=== PATIENT | female | born 1940 | race Caucasian/White ===

== ENCOUNTER 2017-03-25 11:11 | Emergency (ER) | payer OTHER ==
[2017-03-25 11:19] VITALS: BP 131/56; PULSE 63; TEMP 97.8; BMI 38.9
--- NOTE | 2017-03-25 11:44 | PDOC ---
History of Present Illness - General Chief Complaint: Pain Stated Complaint: RT HIP PAIN Time Seen by Provider: 03/25/17 11:25 History Source: Patient Exam Limitations: No Limitations - History of Present Illness Initial Comments: 03/25/17 11:56 76-year-old female presents to the ED with complaints of right hip pain for the past 6 months now radiating to the left hip and left shoulder. Patient states symptoms progressively worse throughout the day but are relieved with Tylenol. Patient states it seems Dr. Parker twice for the above and was supposed received a prescription for CAT scan/MRI but states is still waiting and due to the length of symptoms she decided come to the ER. Patient denies numbness, tingling, weakness, skin discoloration, swelling, abdominal pain, chest pain, headache or dizziness. Patient does state mild weight gain over the past year and denies any history of arthritis, gout, or muscle pain. Timing/Duration: constant Severity: moderate Associated Symptoms: reports: denies symptoms Past History - Travel Traveled outside of the country in the last 30 days: No Close contact w/someone who was outside of country & ill: No - Past Medical History Allergies/Adverse Reactions: Allergies Allergy/AdvReac Type Severity Reaction Status Date / Time No Known Allergies Allergy Verified 03/25/17 11:15 Home Medications: Ambulatory Orders Lisinopril [Prinivil] 10 mg PO DAILY 08/08/12 Meloxicam [Mobic] 15 mg PO DAILY 08/08/12 Simvastatin [Zocor] 40 mg PO HS 08/08/12 Aspirin [Aspirin EC] 81 mg PO ASDIR 07/09/16 Cyclobenzaprine HCl 7.5 mg PO HS #2 tablet 07/09/16 Naproxen [Naprosyn -] 250 mg PO BID #4 tablet 07/09/16 HTN: Yes Hypercholesterolemia: Yes Kidney Stones: Yes - Surgical History Cholecystectomy: Yes - Psycho/Social/Smoking Cessation Hx Anxiety: No Suicidal Ideation: No Smoking Status: No Smoking History: Never smoked Number of Cigarettes Smoked Daily: 0 Information on smoking cessation initiated: No Hx Alcohol Use: No Drug/Substance Use Hx: No Substance Use Type: None Patient Lives Alone: No Lives with/in: spouse/SO Review of Systems - Review of Systems Able to Perform ROS?: No Constitutional: No: Symptoms Reported Musculoskeletal: Yes: Back Pain, Joint Pain Integumentary: No: Symptoms Reported Neurological: No: Symptoms reported Hematologic/Lymphatic: No: Symptoms Reported *Physical Exam - Vital Signs Last Vital Signs Temp Pulse Resp BP Pulse Ox 97.8 F 63 18 131/56 98 03/25/17 11:13 03/25/17 11:13 03/25/17 11:13 03/25/17 11:13 03/25/17 11:13 - Physical Exam General Appearance: Yes: Nourished, Appropriately Dressed. No: Apparent Distress Neck: positive: Tender. negative: Supple, Decreased range of motion Respiratory/Chest: positive: Lungs Clear, Normal Breath Sounds. negative: Chest Tender, Respiratory Distress, Accessory Muscle Use Cardiovascular: positive: Regular Rhythm, Regular Rate. negative: Murmur Musculoskeletal: positive: Vertebral Tenderness (l4-5). negative: Decreased Range of Motion Extremity: positive: Normal Capillary Refill, Normal Inspection, Normal Range of Motion. negative: Tender Integumentary: positive: Normal Color, Warm, Moist Medical Decision Making - Medical Decision Making 03/25/17 12:03 Patient with worsening chronic low back pain now radiating to her hips and left shoulder. Patient on exam had point and is to L4-L5 with no joint laxity, deformity, or crepitus. Patient ordered for 30 IM Toradol, including a CT of the lumbar spine. Depending on results will contact patient's PCP Dr. Parker. 03/25/17 12:39 Lumbar spine shows marked bilateral L5-S1 with mild to moderate bilateral L4-L5 and mild to moderate right L3 to L4 degenerative facet athropathy. no definite disc herniation noted. Multilevel disc bulging. There is also noted mild L4-L5 canal stenosis. Multilevel degenerative disc space narrowing. Patient will be given copy of CAT scan to bring with her to Dr. Parker's office. Patient otherwise recommended to take Motrin 400 mg every 8 hours for discomfort. 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 Apply heat to affected area. Bring copy of Scan report with you to Dr. Parker's office.
[2017-03-25] MEDS ORDERED: KETOROLAC TROMETHAMINE 30 MG/1 ML VIAL IM ONE (12:01)
[2017-03-25] MEDS ORDERED: KETOROLAC TROMETHAMINE 30 MG/1 ML VIAL ONE (12:11)
== END 2017-03-25 12:45 | disposition home or self-care (01) ==
LOC: JER 11:11 → JERFT 11:11
PROC: 3E0233Z Introduction of Anti-inflammatory into Muscle, Percutaneous Approach (ICD-10-PCS; principal; 2017-03-25)
DX: M13.88 Other specified arthritis, other site (principal); I10 Essential (primary) hypertension; E78.00 Pure hypercholesterolemia, unspecified; Z87.442 Personal history of urinary calculi
CPT/HCPCS: 72131-TC; 99281-25

== ENCOUNTER 2018-05-24 08:56 | Emergency (ER) | payer OTHER ==
[2018-05-24 09:01] VITALS: TEMP 98.6; BMI 39.4
--- NOTE | 2018-05-24 09:15 | PDOC ---
History of Present Illness - General Chief Complaint: Chest Pain Stated Complaint: CHEST PAIN Time Seen by Provider: 05/24/18 09:14 History Source: Patient, Spouse, Old Records Exam Limitations: No Limitations - History of Present Illness Initial Comments: 65 y/o female presenting to [facility] ER via private auto complaining of left sided chest pain x6 days. Pain is nonradiating to back, neck, or arm. Pain is not reproducible with palpation, not pleuritic, and not exertional. Made worse by eating and drinking, but denies burning sensation in throat or mouth. Denies acute dyspnea, lower extremity swelling, orthopnea, or paroxysmal nocturnal dyspnea. Denies trauma to the area. Medical Hx: - HTN - HCL - Arthritis Surgical Hx: - Cholecystectomy Past History - Past Medical History Allergies/Adverse Reactions: Allergies Allergy/AdvReac Type Severity Reaction Status Date / Time No Known Allergies Allergy Verified 04/07/18 10:18 Home Medications: Ambulatory Orders Lisinopril [Prinivil] 20 mg PO DAILY 08/08/12 Simvastatin [Zocor] 40 mg PO HS 08/08/12 Aspirin [Aspirin EC] 81 mg PO ASDIR 07/09/16 Omeprazole 20 mg PO DAILY 28 Days #28 tablet. 05/24/18 COPD: No HTN: Yes Hypercholesterolemia: Yes Kidney Stones: Yes - Surgical History Cholecystectomy: Yes - Immunization History Immunization Up to Date: Yes - Suicide/Smoking/Psychosocial Hx Smoking Status: No Smoking History: Never smoked Have you smoked in the past 12 months: No Number of Cigarettes Smoked Daily: 0 Hx Alcohol Use: No Drug/Substance Use Hx: No Substance Use Type: None Review of Systems - Review of Systems Able to Perform ROS?: Yes Comments:: In addition to that documented in the HPI above, the additional ROS was obtained : Constitutional: Denies fevers, chills, or syncope Eyes: Denies vision changes ENMT: Denies sore throat CV: Per HPI Resp: Denies acute SOB GI: Denies vomiting or diarrhea *Physical Exam - Vital Signs Last Vital Signs Temp Pulse Resp BP Pulse Ox 98.6 F 55 L 16 134/79 99 05/24/18 08:59 05/24/18 14:59 05/24/18 14:59 05/24/18 14:59 05/24/18 14:59 - Physical Exam Comments: Constitutional: Well-developed, well-nourished female in no acute distress or obvious discomfort. Found sitting upright on edge of hospital bed. Alert and oriented x4. Answered all questions appropriately and completely. Speech was non -labored, non-pressured. HEENT: Normocephalic. No obvious external signs of trauma. Hearing grossly normal. No nasal discharge. Neck is supple, trachea is midline. Cardiovascular: Regular rate and regular rhythm. No murmur, rubs, clicks, or gallops. Peripheral pulses: Radial pulses full. Respiratory: Breathing unlabored. Equal chest rise and fall. Clear to auscultation bilaterally. No stridor, no wheezing, no rhonchi. Gastrointestinal: abdomen is soft, non-tender, non-distended. No overlying skin lesions. Neuro: Alert and oriented. Moving all four extremities spontaneously. MSK / Skin: Warm, dry, and intact. No bruising, rashes, or other lesions. Trace pretibial edema on R and L. : No R or L CVA tenderness. Psych: Affect: appropriate. Mood: normal. ED Treatment Course - LABORATORY CBC & Chemistry Diagram: 05/24/18 09:40 05/24/18 13:30 - ADDITIONAL ORDERS Additional order review: Laboratory Results 05/24/18 05/24/18 05/24/18 14:15 13:30 12:50 Sodium 143 Potassium 4.1 Chloride 110 H Carbon Dioxide 27 Anion Gap 6 L BUN 13 Creatinine 0.6 Creat Clearance w eGFR > 60 Random Glucose 99 Serum Osmolality 291 Calcium 8.5 Phosphorus 2.8 Magnesium 2.2 Troponin I < 0.02 Lipase Urine Color Urine Appearance Urine pH Ur Specific [place] Urine Protein Urine Glucose (UA) Urine Ketones Urine Blood Urine Nitrite Urine Bilirubin Urine Urobilinogen Ur Leukocyte Esterase Urine WBC (Auto) Urine RBC (Auto) Ur Epithelial Cells Urine Mucus Urine Osmolality 409 Ur Random Sodium Urine Creatinine 05/24/18 05/24/18 05/24/18 11:50 11:50 11:50 Sodium Potassium Chloride Carbon Dioxide Anion Gap BUN Creatinine Creat Clearance w eGFR Random Glucose Serum Osmolality Cancelled Calcium Phosphorus Magnesium Troponin I Lipase Urine Color Ltyellow Urine Appearance Clear Urine pH 5.0 Ur Specific [place] 1.010 Urine Protein 7 Negative Urine Glucose (UA) Negative Urine Ketones Negative Urine Blood 1+ H Urine Nitrite Negative Urine Bilirubin Negative Urine Urobilinogen Negative Ur Leukocyte Esterase Trace Urine WBC (Auto) 6 Urine RBC (Auto) 1 Ur Epithelial Cells Rare Urine Mucus Rare Urine Osmolality Ur Random Sodium 88 Urine Creatinine 52.0 H 05/24/18 05/24/18 09:40 09:40 Sodium 119 L* Potassium 3.8 Chloride 115 H Carbon Dioxide 26 Anion Gap -22 L BUN 15 Creatinine 0.6 Creat Clearance w eGFR > 60 Random Glucose 97 Serum Osmolality Calcium 9.9 Phosphorus Magnesium Troponin I Cancelled < 0.02 Lipase Cancelled 160 Urine Color Urine Appearance Urine pH Ur Specific [place] Urine Protein Urine Glucose (UA) Urine Ketones Urine Blood Urine Nitrite Urine Bilirubin Urine Urobilinogen Ur Leukocyte Esterase Urine WBC (Auto) Urine RBC (Auto) Ur Epithelial Cells Urine Mucus Urine Osmolality Ur Random Sodium Urine Creatinine 05/24/18 09:40 RBC 5.59 H MCV 63.7 L MCHC 30.8 L RDW 16.5 H MPV 8.6 - RADIOLOGY Radiology Studies Ordered: Category Date Time Status CHEST PA & LAT [RAD] Stat Radiology 05/24/18 09:33 Taken - Medications Given in the ED: ED Medications Discontinued Medications Generic Name Dose Route Start Last Admin Trade Name Freq PRN Reason Stop Dose Admin Al Hydroxide/Mg Hydroxide 30 ml 05/24/18 09:34 05/24/18 09:41 Mylanta Oral Suspension - PO 05/24/18 09:35 30 ml ONCE ONE Administration Lidocaine HCl 15 ml 05/24/18 09:34 05/24/18 09:41 Xylocaine 2% Viscous MM 05/24/18 09:35 15 ml ONCE ONE Administration Sodium Chloride 1,000 ml 05/24/18 11:36 05/24/18 12:00 Normal Saline - IV 05/24/18 11:37 1,000 ml ONCE ONE Administration Medical Decision Making - Medical Decision Making *Reviewed vital signs, nursing notes, and prior visit documentation (if available). 65 y/o female complaining of left sided chest pain x1 week. Nonradiating, non reproducible, nonpleuritic. Worse with PO intake. Afebrile. Vitals unremarkable for hypotension or tachycardia. Suspect dyspepsia vs PUD given relation to food. Pt is s/p cholecystectomy. Low suspicion for ACS, esophageal spasm, pancreatitis, gastritis, costochondritis, pneumonia, pleurisy, pericarditis/ myocarditis, dehydration, electrolyte/metabolic derangements. Will obtain CBC, BMP, Troponin, EKG, and CXR. Ordered viscous lidocaine and Maalox for symptom relief. Takes ASA daily, last used last night. Will hold at this time. HEART Score for Major Cardiac Events from [email or web address] on 05/24/2018 RESULT SUMMARY: 4 points Moderate Score (4-6 points) Risk of MACE of 12-16.6%. INPUTS: History > 0 = Slightly suspicious EKG > 0 = Normal Age > 2 = ?65 Risk factors > 2 = ?3 risk factors or history of atherosclerotic disease Initial troponin > 0 = ?normal limit EKG: Sinus bradycardia rhythm with a ventricular rate of 58 bpm. Normal axis. Normal intervals. No ST segment elevation or depression. No hyperacute T waves. No pathologic Q waves. Nonspecific T wave inversion in V2. Pt reports chest discomfort has improved after GI cocktail. 11:42 Noted to be hyponatremic to 119. No history of similar values noted in [employer]. Ordered NS IVFB. Will obtain serum osmolality and urine electrolytes to calculate correcting fluid rate. 13:17 Serum osmolality cancelled by lab. Reordered. Also ordered second troponin. Continue to have low suspicion for ACS. Microblog sent to [facility] Hospitalist team for admission. Second chemistry revealed sodium within normal range. Suspect initial sodium was a lab abnormality as pt is asymptomatic. Inpatient medicine team agrees. Will cancel admission as pt's chest pain has resolved. Second troponin negative. Continue to have low suspicion for ACS. Discussed imaging and laboratory results with pt. Answered all questions. Provided return precautions. Pt expressed verbal understanding and agreement with plan to discharge home with outpatient follow up. Is already scheduled to see sail maker next week, who incidentally was in the department evaluating another department and agrees without outpatient follow up. Also provided GI referral. *DC/Admit/Observation/Transfer Diagnosis at time of Disposition: Hyponatremia Chest pain Qualifiers: Chest pain type: unspecified Qualified Code(s): R07.9 - Chest pain, unspecified - Discharge Dispostion Condition at time of disposition: Stable Decision to Admit order: Yes - Prescriptions Prescriptions: Omeprazole 20 mg PO DAILY 28 Days #28 tablet.dr - Referrals Referrals: Alonso Parker MD [Primary Care Provider] - Remy Mendoza MD [Staff Physician] - - Patient Instructions Printed Discharge Instructions: DI for Gastroesophageal Reflux Disease (GERD), DI for Atypical Chest Pain Additional Instructions: Your lab work initially showed your sodium was low, however it was normal on the repeat test. This first result was likely a lab error. The rest of your results were normal. Your symptoms were likely related to acid reflux. I have sent a 4 week prescription for Omeprazole to [facility]. Take as directed on the package. You should follow up with your primary care doctor within the next 3-4 days. You will need to call to make an appointment. The results from today's visit are included in this packet. Take it with you so your physician can review the results. I have also included a referral for your to see Dr. Mendoza, who is a gastrointestinal (GI) doctor. You can also follow up with him or with another physician recommended by your primary care doctor. You will need to call to make an appointment. Go to the nearest emergency department if your symptoms worsen or you feel like you need an additional emergency evaluation. Baker trabajo de laboratorio inicialmente mostr que baker nivel de sodio era bajo, sin embargo, fue normal en la prueba de repeticin. Antoinette primer resultado fue probablemente un error de laboratorio. El nicholas de tus resultados fueron normales. Matt sntomas probablemente estaban relacionados con el reflujo cido. He enviado sharan receta de 4 semanas para omeprazol a [facility]. Dona shari se indica en el paquete. Debe hacer un seguimiento con baker mdico de atencin primaria dentro de los prximos 3 a 4 cordova. Tendr que llamar para hacer sharan stephanie. Los resultados de la visita de armandoallegra estn incluidos en antoinette paquete. Llvelo con usted para que baker mdico pueda revisar los resultados. Husam inclu sharan referencia para que usted hawa al Dr. Mendoza, que es un mdico gastrointestinal (GI). Huasm puede hacer un seguimiento con l o con otro mdico recomendado por baker mdico de atencin primaria. Tendr que llamar para hacer sharan stephanie. Vaya al servicio de urgencias ms cercano si matt sntomas empeoran o si siente que necesita sharan evaluacin de emergencia adicional. Print Language: URUGUAYAN - Post Discharge Activity
[2018-05-24] MEDS ORDERED: MAG HYDROX/AL HYDROX/SIMETH 30 ML UNIT-DOSE CUP PO ONE (09:34)
[2018-05-24] MEDS ORDERED: LIDOCAINE VISCOUS 2% ORAL/TOP 100 ML BOTTLE MM ONE (09:34)
[2018-05-24] MEDS ORDERED: MAG HYDROX/AL HYDROX/SIMETH 30 ML UNIT-DOSE CUP ONE (09:38)
[2018-05-24] MEDS ORDERED: LIDOCAINE VISCOUS 2% ORAL/TOP 20 ML UNIT-DOSE CUP ONE (09:38)
[2018-05-24 10:23] LABS: HEMATOCRIT 35.6 % (32.4-45.2); MCHC 30.8 g/dl (32.0-36.0); MEAN CELL VOLUME 63.7 fl (80-96); MEAN PLT VOLUME 8.6 fl (7.5-11.1); PLATELET COUNT 246 K/MM3 (134-434); RBC 5.59 M/mm3 (3.60-5.2); RDW 16.5 % (11.6-15.6); WHITE BLOOD COUNT 7.4 K/mm3 (4.0-10.0)
[2018-05-24 10:26] LABS: MCH 19.6 pg (25.7-33.7)
[2018-05-24 11:03] LABS: ANION GAP -22 MMOL/L (8-16); BLOOD UREA NITROGEN 15 mg/dL (7-18); CALCIUM 9.9 mg/dL (8.5-10.1); CHLORIDE 115 mmol/L (98-107); CO2 26 mmol/L (21-32); CREATININE 0.6 mg/dL (0.55-1.3); GLUCOSE,RANDOM 97 mg/dL (74-106); LIPASE 160 U/L (73-393); POTASSIUM 3.8 mmol/L (3.5-5.1)
--- NOTE | 2018-05-24 11:12 | PDOC ---
Attending Attestation - Resident Resident Name: Gustavo Villafuerte - ED Attending Attestation I have performed the following: I have examined & evaluated the patient, The case was reviewed & discussed with the resident, I agree w/resident's findings & plan, Exceptions are as noted - HPI HPI: 05/24/18 11:10 Agree with residents HPI - Physicial Exam PE: 05/24/18 11:11 Agree with Residents PE - Medical Decision Making 05/24/18 13:30 77 years old multiple medical problems presents to the emergency department one- week history of atypical epigastric discomfort associated with meals Nonischemic EKG troponin negative heart score 3. Patient stable for outpatient follow-up however on laboratory analysis patient's sodium noted to be 119 Repeat sodium noted to be greater than 140 no acute indication at this time for observation Patient has follow-up with her pocket cutter on Wednesday. Findings, the need for follow-up and strict return instructions discussed with patient and family. Heart Score/ECG Review - History History: Slightly suspicious - Electrocardiogram EKG: Normal - Age Age: >/= 65 - Risk Factors Risk Factors Heart Score: Yes Hx Hypercholesterolemia, Yes Hx Hypertension Based on the list above the patient has:: 1-2 risk factors - Troponin Troponin: </= normal limit - Score Heart Score - Total: 3 - ECG Impressions Comment:: 05/24/18 13:[address] elevations or T-wave inversions
[2018-05-24 11:27] LABS: SODIUM 119 mmol/L (136-145)
[2018-05-24] MEDS ORDERED: SODIUM CHLORIDE 0.9% 500 ML INFUS.BAG IV ONE (11:36)
[2018-05-24 12:05] LABS: URINE APPEARANCE CLEAR; URINE BILIRUBIN NEGATIVE (<2.0 mg/dL); URINE COLOR LTYELLOW; URINE GLUCOSE (UA) NEGATIVE (NEGATIVE); URINE KETONE NEGATIVE (NEGATIVE); URINE LEUK ESTERASE TRACE (NEGATIVE); URINE NITRITE NEGATIVE (NEGATIVE); URINE PROTEIN NEGATIVE (NEGATIVE); URINE UROBILINOGEN NEGATIVE mg/dL (0.2-1.0)
[2018-05-24 12:10] LABS: EPI CELLS RARE /HPF (FEW); URINE MUCUS RARE
--- NOTE | 2018-05-24 13:29 | PN ---
Teaching Attending Note Name of Resident: Jarret Camp ATTENDING PHYSICIAN STATEMENT I saw and evaluated the patient. I reviewed the resident's note and discussed the case with the resident. I agree with the resident's findings and plan as documented. SUBJECTIVE: Patient is a 65 y/o female with PMHx of HTN, HLD, presented with complaining of having left sided chest pain x 6 days. OBJECTIVE: Vital Signs Temperature 98.6 F 05/24/18 08:59 Pulse Rate 50 L 05/24/18 12:15 Respiratory Rate 18 05/24/18 12:15 Blood Pressure 135/55 L 05/24/18 12:15 O2 Sat by Pulse Oximetry (%) 98 05/24/18 12:15 GENERAL:Well developed, well nourished. Awake and alert. No acute distress. HEENT:Normocephalic, atraumatic. PERRLA, EOMI. No conjunctival pallor. Sclera are non-icteric. Moist mucous membranes. NECK: Supple. Full ROM. No JVD. Carotid pulses 2+ and symmetric, without bruits. No thyromegaly. CARDIOVASCULAR:Regular rate and rhythm. No murmurs, rubs, or gallops. PULMONARY: CTA BL . No wheezing, rales or rhonchi. ABDOMINAL:Soft. Non-tender. Non-distended. No rebound or guarding. No organomegaly. Normoactive bowel sounds. MUSCULOSKELETAL Normal range of motion at all joints. No bony deformities or tenderness. EXTREMITIES: No cyanosis. No clubbing. No edema. No calf tenderness. SKIN: Warm and dry. Normal capillary refill. No rashes. No jaundice. NEUROLOGICAL: Alert, awake, appropriate. Cranial nerves 2-12 intact. PSYCHIATRIC: Cooperative. Good eye contact. Appropriate mood and affect. CBCD WBC 7.4 K/mm3 (4.0-10.0) 05/24/18 09:40 RBC 5.59 M/mm3 (3.60-5.2) H 05/24/18 09:40 Hgb 11.0 GM/dL (10.7-15.3) 05/24/18 09:40 Hct 35.6 % (32.4-45.2) 05/24/18 09:40 MCV 63.7 fl (80-96) L 05/24/18 09:40 MCHC 30.8 g/dl (32.0-36.0) L 05/24/18 09:40 RDW 16.5 % (11.6-15.6) H 05/24/18 09:40 Plt Count 246 K/MM3 (134-434) 05/24/18 09:40 MPV 8.6 fl (7.5-11.1) 05/24/18 09:40 CMP Sodium 119 mmol/L (136-145) L* 05/24/18 09:40 Potassium 3.8 mmol/L (3.5-5.1) 05/24/18 09:40 Chloride 115 mmol/L (98-107) H 05/24/18 09:40 Carbon Dioxide 26 mmol/L (21-32) 05/24/18 09:40 Anion Gap -22 MMOL/L (8-16) L 05/24/18 09:40 BUN 15 mg/dL (7-18) 05/24/18 09:40 Creatinine 0.6 mg/dL (0.55-1.3) 05/24/18 09:40 Creat Clearance w eGFR > 60 (>60) 05/24/18 09:40 Random Glucose 97 mg/dL (74-106) 05/24/18 09:40 Calcium 9.9 mg/dL (8.5-10.1) 05/24/18 09:40 CARDIAC ENZYMES Troponin I < 0.02 ng/ml (0.00-0.05) 05/24/18 09:40 Home Medications Medication Instructions Recorded Lisinopril [Prinivil] 20 mg PO DAILY 08/08/12 Simvastatin [Zocor] 40 mg PO HS 08/08/12 Aspirin [Aspirin EC] 81 mg PO ASDIR 07/09/16 CXR: nO effusion or infiltrate. EKG: ASSESSMENT AND PLAN: Patient is a 65 y/o female with PMHx of HTN, HLD, presented with complaining of having left sided chest pain x 6 days. # Severe Hyponatremia : given a liter of IV fluid, urine osm, serum osm. sodium in urine, Nephro consult
[2018-05-24 14:33] LABS: ANION GAP 6 MMOL/L (8-16); BLOOD UREA NITROGEN 13 mg/dL (7-18); CALCIUM 8.5 mg/dL (8.5-10.1); CHLORIDE 110 mmol/L (98-107); CO2 27 mmol/L (21-32); CREATININE 0.6 mg/dL (0.55-1.3); GLUCOSE,RANDOM 99 mg/dL (74-106); MAGNESIUM 2.2 mg/dL (1.8-2.4); PHOSPHOROUS 2.8 mg/dL (2.5-4.9); POTASSIUM 4.1 mmol/L (3.5-5.1); SODIUM 143 mmol/L (136-145)
[2018-05-24 14:59] VITALS: BP 134/79; PULSE 55
--- NOTE | 2018-05-24 15:13 | CON.CARD ---
Consult Consult Specialty:: cardiology Reason for Consultation:: chest pain - History of Present Illness Chief Complaint: Pt A&Ox3; intermittent chest/abdominal discomfort for the past several days History of Present Illness: 65 y/o female (b. [place]) with PMHx HTN, hyperlipidemia, CAD (stress MIBI 06/2014: mild, nonextensive apical ischemia, with normal LVEF; coronary [id number]: results unknown: ? [facility], though pt says "everything was fine " and no PCI was required), palpitations, obesity, sedentary lifestyle, complaining of left sided chest pain x6 days. Pain is nonradiating to back, neck , or arm. Pain is not reproducible with palpation, not pleuritic, and not exertional. Made worse by eating and drinking, but denies burning sensation in throat or mouth. Denies acute dyspnea, lower extremity swelling, orthopnea, or paroxysmal nocturnal dyspnea. Denies trauma to the area. Surgical Hx: - Cholecystectomy - History Source History Provided By: Patient, Family Member (), Medical Record Limitations to Obtaining History: No Limitations - Past Medical History Cardio/Vascular: Yes: CAD, CHF, HTN, Hyperlipdemia, Murmur Pulmonary: No: Previously Intubated Reproductive: Yes: Postmenopausal ...: No Psych: Yes: Anxiety - Past Surgical History Additional Surgical History: coronary angiogram 2014 - Alcohol/Substance Use Hx Alcohol Use: No - Smoking History Smoking history: Never smoked Have you smoked in the past 12 months: No Aproximately how many cigarettes per day: 0 Home Medications - Allergies Allergies/Adverse Reactions: Allergies Allergy/AdvReac Type Severity Reaction Status Date / Time No Known Allergies Allergy Verified 04/07/18 10:18 - Home Medications Home Medications: Ambulatory Orders Lisinopril [Prinivil] 20 mg PO DAILY 08/08/12 Simvastatin [Zocor] 40 mg PO HS 08/08/12 Aspirin [Aspirin EC] 81 mg PO ASDIR 07/09/16 Omeprazole 20 mg PO DAILY 28 Days #28 tablet. 05/24/18 Family Disease History - Family Disease History Family History: Denies Review of Systems - Review of Systems Constitutional: reports: Weakness Eyes: reports: No Symptoms HENT: reports: No Symptoms Neck: reports: No Symptoms Cardiovascular: reports: Chest Pain Respiratory: reports: No Symptoms Gastrointestinal: reports: Abdominal Pain Genitourinary: reports: No Symptoms Breasts: reports: No Symptoms Reported Musculoskeletal: reports: Muscle Weakness Integumentary: reports: No Symptoms Neurological: reports: No Symptoms Endocrine: reports: No Symptoms Hematology/Lymphatic: reports: No Symptoms Psychiatric: reports: Anxiety - Risk Factors Known Risk Factors: Yes: Age, Hypertension, Physical Inactivity Vital Signs: Vital Signs Temperature 98.6 F 05/24/18 08:59 Pulse Rate 55 L 05/24/18 14:59 Respiratory Rate 16 05/24/18 14:59 Blood Pressure 134/79 05/24/18 14:59 O2 Sat by Pulse Oximetry (%) 99 05/24/18 14:59 Constitutional: Yes: Anxious Eyes: Yes: WNL HENT: Yes: WNL Neck: Yes: WNL Respiratory: Yes: WNL Gastrointestinal: Yes: WNL Renal/: Yes: WNL Cardiovascular: Yes: Regular Rate and Rhythm JVD: No Carotid Bruit: No PMI: Non-Displaced Heart Sounds: Yes: S1, S2, S4 Murmur: Yes: Systolic Murmur, Grade 1 Musculoskeletal: Yes: Muscle Weakness Extremities: Yes: WNL Edema: No Peripheral Pulses WNL: Yes Integumentary: Yes: WNL Neurological: Yes: WNL Psychiatric: Yes: Alert, Oriented, Other - Other Data Labs, Other Data: CBC, BMP 05/24/18 09:40 05/24/18 13:30 Troponin, BNP 05/24/18 05/24/18 05/24/18 09:40 09:40 13:30 Troponin I < 0.02 Cancelled < 0.02 Troponin, BNP 05/24/18 05/24/18 05/24/18 09:40 09:40 13:30 Troponin I < 0.02 Cancelled < 0.02 Problem List - Problems (1) Atypical chest pain Assessment/Plan: TNI < 0.02; f/u serially. EKG pending. Code(s): R07.89 - OTHER CHEST PAIN (2) Arthritis of lumbar spine Code(s): M46.96 - UNSPECIFIED INFLAMMATORY SPONDYLOPATHY, LUMBAR REGION (3) Chronic lower back pain Code(s): M54.5 - LOW BACK PAIN; G89.29 - OTHER CHRONIC PAIN Qualifiers: Back pain laterality: right Sciatica presence: with sciatica Sciatica laterality: sciatica of right side Qualified Code(s): M54.41 - Lumbago with sciatica, right side (4) Hyponatremia Assessment/Plan: NA 119; workup in progress. Code(s): E87.1 - HYPO-OSMOLALITY AND HYPONATREMIA
--- NOTE | 2018-05-25 09:53 | PN ---
Progress Note, Physician History of Present Illness: 65 y/o female presenting to [facility] ER via private auto complaining of left sided chest pain x6 days. Pain is nonradiating to back, neck, or arm. Pain is not reproducible with palpation, not pleuritic, and not exertional. Made worse by eating and drinking, but denies burning sensation in throat or mouth. Denies acute dyspnea, lower extremity swelling, orthopnea, or paroxysmal nocturnal dyspnea. Denies trauma to the area. - Objective Vital Signs: Vital Signs Temperature 98.6 F 05/24/18 08:59 Pulse Rate 55 L 05/24/18 14:59 Respiratory Rate 16 05/24/18 14:59 Blood Pressure 134/79 05/24/18 14:59 O2 Sat by Pulse Oximetry (%) 99 05/24/18 14:59 Eyes: Yes: WNL, Conjunctiva Clear, EOM Intact HENT: Yes: WNL, Atraumatic, Normocephalic Neck: Yes: WNL, Supple, Trachea Midline Cardiovascular: Yes: WNL, Regular Rate and Rhythm Respiratory: Yes: WNL, Regular, CTA Bilaterally Gastrointestinal: Yes: WNL, Normal Bowel Sounds Genitourinary: Yes: WNL Musculoskeletal: Yes: WNL Extremities: Yes: WNL Edema: No Integumentary: Yes: WNL Neurological: Yes: WNL, Alert, Oriented ...Motor Strength: WNL Psychiatric: Yes: WNL Labs: CBC, BMP 05/24/18 09:40 05/24/18 13:30
[2018-05-25 15:39] LABS: CHOLESTEROL 130 mg/dL (50-200); HDL CHOLESTEROL 60 mg/dL (40-60); TRIGLYCERIDES 118 mg/dL (0-150)
--- NOTE | 2018-05-26 22:15 | EKG ---
Test Reason : Blood Pressure : / mmHG Vent. Rate : 058 BPM Atrial Rate : 058 BPM P-R Int : 132 ms QRS Dur : 094 ms QT Int : 400 ms P-R-T Axes : 066 037 037 degrees QTc Int : 392 ms SINUS BRADYCARDIA WITH SINUS ARRHYTHMIA NONSPECIFIC T WAVE ABNORMALITY ABNORMAL ECG WHEN COMPARED WITH ECG OF 08-AUG-2012 17:09, QT HAS SHORTENED Confirmed by NIKOLAS GARRISON MD ([id number]) on 05/26/2018 10:14:39 PM Referred By: Confirmed By:NIKOLAS GARRISON MD
== END 2018-05-24 14:59 | disposition home or self-care (01) ==
LOC: JER 08:56
DX: R07.9 Chest pain, unspecified (principal); E87.1 Hypo-osmolality and hyponatremia
CPT/HCPCS: 36415; 71046-TC-FY; 80048; 80061; 81003; 81015; 82570; 83690; 83721; 83735; 83930; 83935; 84100; 84156; 84300; 84443; 84484; 85027; 87086; 93005; 93010; 99285-25

== ENCOUNTER 2019-03-29 23:13 | Emergency (ER) | payer OTHER ==
[2019-03-29 23:17] VITALS: TEMP 100.2; BMI 38.3
--- NOTE | 2019-03-29 23:59 | PDOC ---
Documentation entered by Sofie Salazar SCRIBE, acting as scribe for Queenie Lawson DO. Queenie Lawson DO: This documentation has been prepared by the Martin vera Sammi, SCRIBE, under my direction and personally reviewed by me in its entirety. I confirm that the documentation accurately reflects all work, treatment, procedures, and medical decision making performed by me. History of Present Illness - General Chief Complaint: Shortness of Breath Stated Complaint: COLD SYMPTOMS Time Seen by Provider: 03/29/19 23:44 History Source: Patient Exam Limitations: No Limitations - History of Present Illness Initial Comments: 03/30/19 00:01 The patient is a 78 year old female, with a significant PMH of HTN and high cholesterol, who presents to the emergency department for evaluation of 4 days of worsening chest congestion and non-productive cough. The patient notes associated subjective fever, intermittent sore throat, loose stool, and lateral abdominal discomfort. She reports taking tylenol at 9:30 tonight with no relief. She notes chronic intermittent lower extremity edema. The patient has an appointment with her PCP José Luis tomorrow morning but her symptoms were so severe that she presented to the ED. The patient denies headache and dizziness. Denies nausea, vomiting, constipation. Denies dysuria, frequency, urgency and hematuria. Allergies: NKA Past surgical history: cholecystectomy, lipotripsy, breast lumpectomy PCP: José Luis Past History - Past Medical History Allergies/Adverse Reactions: Allergies Allergy/AdvReac Type Severity Reaction Status Date / Time No Known Allergies Allergy Verified 03/30/19 01:38 Home Medications: Ambulatory Orders Lisinopril [Prinivil] 20 mg PO DAILY 08/08/12 Simvastatin [Zocor] 40 mg PO HS 08/08/12 Azithromycin [Zithromax 250mg Tablets -] 250 mg PO UTDICT #6 tab 03/30/19 Famotidine [Pepcid] 40 mg PO DAILY 03/30/19 COPD: No HTN: Yes Hypercholesterolemia: Yes Kidney Stones: Yes - Surgical History Cholecystectomy: Yes - Immunization History Immunization Up to Date: Yes - Suicide/Smoking/Psychosocial Hx Smoking Status: No Smoking History: Never smoked Have you smoked in the past 12 months: No Number of Cigarettes Smoked Daily: 0 Hx Alcohol Use: No Drug/Substance Use Hx: No Substance Use Type: None Review of Systems - Review of Systems Comments:: 03/30/19 00:04 GENERAL/CONSTITUTIONAL: (+)fever. No weakness. HEAD, EYES, EARS, NOSE AND THROAT: (+)sore throat. No change in vision. No ear pain or discharge. CARDIOVASCULAR: (+)SOB (+)chest tightness RESPIRATORY: (+)cough. No hemoptysis. GASTROINTESTINAL: (+)loose stool. No nausea, vomiting, constipation. GENITOURINARY: No dysuria, frequency, or change in urination. MUSCULOSKELETAL: No joint or muscle swelling or pain. No neck or back pain. SKIN: No rash NEUROLOGIC: No headache, vertigo, loss of consciousness, or change in strength/ sensation. *Physical Exam - Vital Signs Last Vital Signs Temp Pulse Resp BP Pulse Ox 100.2 F H 80 20 150/56 L 92 L 03/29/19 23:14 03/29/19 23:14 03/29/19 23:14 03/29/19 23:14 03/29/19 23:14 - Physical Exam Comments: 03/30/19 00:01 GENERAL: Awake, alert, and fully oriented, in no acute distress HEAD: No signs of trauma EYES: PERRLA, EOMI, sclera anicteric, conjunctiva clear ENT: (+)nares congested. Posterior pharynx clear NECK: Normal ROM, supple, no lymphadenopathy, JVD, or masses LUNGS: (+)coarse bronchial breath sounds (R>L) bilaterally at the bases HEART: Regular rate and rhythm, normal S1 and S2, no murmurs, rubs or gallops ABDOMEN: (+)mild epigastric tenderness. Soft, normoactive bowel sounds. No guarding, no rebound. No masses EXTREMITIES: Normal range of motion, no edema. No clubbing or cyanosis. No cords, erythema, or tenderness NEUROLOGICAL: Cranial nerves II through XII grossly intact. Normal speech, normal gait SKIN: (+)hot to touch. Dry, normal turgor, no rashes or lesions noted. Heart Score/ECG Review - ECG Intrepretation Comment:: 03/30/19 01:10 sinus at 79, nl axis, nl interval, no acute st/t wave findings ED Treatment Course - LABORATORY CBC & Chemistry Diagram: 03/30/19 01:05 03/30/19 01:05 - RADIOLOGY Radiology Studies Ordered: Category Date Time Status CHEST X-RAY PORTABLE* [RAD] Stat Radiology 03/29/19 23:54 Ordered Medical Decision Making - Medical Decision Making 03/29/19 23:56 a/p: 78yo female presents with her for eval of cough, congestion x 4 days -pt states fever today - taking tylenol, last dose at 930p tonight -pt states cough - nonproductive sputum, but can't sleep because of cp and sob -pt states 3 episodes of loose stool, not watery -no recent abx -no recent hospitalizations -has appt with [facility] for tomorrow am -pt is warm to touch, coarse bs R base > L base - concern for pna -mild epigastric ttp -will send labs, ekg, cxr -will monitor and reassess 03/30/19 01:13 cxr clear labs pending 03/30/19 01:53 mildly elevated wbc chem pending 03/30/19 02:19 bnp neg trop neg pending ua *DC/Admit/Observation/Transfer Diagnosis at time of Disposition: Bronchitis - Discharge Dispostion Condition at time of disposition: Stable Decision to Admit order: No - Prescriptions Prescriptions: Azithromycin [Zithromax 250mg Tablets -] 250 mg PO UTDICT #6 tab - Referrals Referrals: Gautam Hermosillo MD [Staff Physician] - - Patient Instructions Printed Discharge Instructions: DI for Acute Bronchitis Additional Instructions: Please take tylenol or motrin as needed for pain or fever. Please take all antibiotics as prescribed. Please make an appointment to see your PMD. Please return to the ED with any further concerns or complaints. - Post Discharge Activity - Attestations Physician Attestion: 03/30/19 01:58 I, Dr. Queenie Lawson, DO, attest that this document has been prepared under my direction and personally reviewed by me in its entirety. I further attest, that it accurately reflects all work, treatment, procedures and medical decision -making performed by me.
[2019-03-30 01:26] LABS: PLATELET COUNT 202 K/MM3 (134-434); WHITE BLOOD COUNT 13.5 K/mm3 (4.0-10.0)
[2019-03-30] MEDS ORDERED: ACETAMINOPHEN 1000 MG/100 ML VIAL (NON FORMULARY) IVPB ONE (01:38)
[2019-03-30] MEDS ORDERED: FAMOTIDINE 20 MG/50 ML IVPB 20 MG/50 ML MG IVPB ONE (01:39)
[2019-03-30] MEDS ORDERED: ACETAMINOPHEN INJECTION 100 ML IVPB ONE (01:40)
[2019-03-30 01:41] LABS: BASO % 0.2 % (0-2.0); HEMATOCRIT 31.8 % (32.4-45.2); HEMOGLOBIN 9.9 GM/dL (10.7-15.3); LYMPH % 5.1 % (8-40); MEAN CELL VOLUME 63.7 fl (80-96); MEAN PLT VOLUME 8.8 fl (7.5-11.1); MONO % 4.9 % (3.8-10.2); NEUT % 89.8 % (42.8-82.8); RDW 16.6 % (11.6-15.6)
[2019-03-30 01:51] LABS: MCH 19.8 pg (25.7-33.7)
[2019-03-30] MEDS ORDERED: AZITHROMYCIN 250 MG TABLET PO ONE (01:53)
[2019-03-30 02:04] LABS: ALBUMIN 3.4 g/dl (3.4-5.0); ALK PHOS 83 U/L (45-117); ANION GAP 8 MMOL/L (8-16); BILIRUBIN,TOTAL 0.4 mg/dL (0.2-1); BLOOD UREA NITROGEN 19.9 mg/dL (7-18); CALCIUM 8.5 mg/dL (8.5-10.1); CHLORIDE 110 mmol/L (98-107); CO2 24 mmol/L (21-32); CREATININE 0.9 mg/dL (0.55-1.3); GLUCOSE,RANDOM 118 mg/dL (74-106); LIPASE 122 U/L (73-393); MAGNESIUM 1.8 mg/dL (1.8-2.4); N-TERMINAL BNP 86.1 pg/ml (5-450); SGOT/AST 18 U/L (15-37); SGPT/ALT 26 U/L (13-61); SODIUM 142 mmol/L (136-145); TOT PROT 6.6 g/dl (6.4-8.2)
[2019-03-30] MEDS ORDERED: AZITHROMYCIN 250 MG TABLET ONE (02:08)
[2019-03-30 02:19] LABS: EPI CELLS 3.5 /HPF (0-5/HPF); HYALINE CASTS 3 /lpf (0-8); URINE APPEARANCE CLEAR; URINE BACTERIA 52.3 /hpf (NEGATIVE); URINE BILIRUBIN NEGATIVE (NEGATIVE); URINE COLOR YELLOW; URINE GLUCOSE (UA) NEGATIVE (NEGATIVE); URINE KETONE NEGATIVE (NEGATIVE); URINE LEUK ESTERASE 1+ (NEGATIVE); URINE NITRITE NEGATIVE (NEGATIVE); URINE PROTEIN NEGATIVE (NEGATIVE); URINE WBC 21 /hpf (0-5)
[2019-03-30 02:33] LABS: URINE RBC 10 /hpf (0-4)
[2019-03-30 02:55] VITALS: BP 155/64; PULSE 76
[2019-03-30 11:04] LABS: ANISOCYTOSIS 1+; MACROCYTOSIS 0; OVALOCYTE 1+; PLATELET ESTIMATE NORMAL; TEAR DROP CELLS 1+
--- NOTE | 2019-03-30 13:50 | EKG ---
Test Reason : Blood Pressure : / mmHG Vent. Rate : 079 BPM Atrial Rate : 079 BPM P-R Int : 124 ms QRS Dur : 094 ms QT Int : 352 ms P-R-T Axes : 068 061 044 degrees QTc Int : 403 ms NORMAL SINUS RHYTHM INCOMPLETE RIGHT BUNDLE BRANCH BLOCK NONSPECIFIC ST AND T WAVE ABNORMALITY ABNORMAL ECG WHEN COMPARED WITH ECG OF 24-MAY-2018 08:58, NONSPECIFIC T WAVE ABNORMALITY NO LONGER EVIDENT IN LATERAL LEADS Confirmed by BALJIT WHITE MD ([id number]) on 03/30/2019 1:50:30 PM Referred By: Confirmed By:BALJIT WHITE MD
== END 2019-03-30 02:56 | disposition home or self-care (01) ==
LOC: JER 23:13
PROC: 3E023NZ Introduction of Analgesics, Hypnotics, Sedatives into Muscle, Percutaneous Approach (ICD-10-PCS; principal; 2019-03-29)
DX: J20.9 Acute bronchitis, unspecified (principal); I10 Essential (primary) hypertension; E78.00 Pure hypercholesterolemia, unspecified
CPT/HCPCS: 36415; 71045-TC-FY; 80053; 81003; 82550; 83605; 83690; 83735; 83880; 84484; 85025; 87086; 93005; 93010; 99283-25; J0131

== ENCOUNTER 2020-10-07 14:25 | Inpatient (IN) | payer OTHER ==
[2020-10-07] MEDS ORDERED: SODIUM CHLORIDE 500 ML IV STA (15:35)
[2020-10-07] MEDS ORDERED: DEXAMETHASONE LIQUID 0.5 MG/5 ML PO ONE (15:40)
[2020-10-07] MEDS ORDERED: DEXAMETHASONE SOD PHOSPHATE 10 MG/1 ML VIAL ONE (16:34)
[2020-10-07 16:47] LABS: EOS % 0.1 % (0-4.5); HEMATOCRIT 33.6 % (32.4-45.2); HEMOGLOBIN 10.7 GM/dL (10.7-15.3); LYMPH % 9.2 % (8-40); MCHC 31.9 g/dl (32.0-36.0); MEAN PLT VOLUME 7.7 fl (7.5-11.1); MONO % 5.4 % (3.8-10.2); NEUT % 84.3 % (42.8-82.8); PLATELET COUNT 275 K/MM3 (134-434); RBC 5.43 M/mm3 (3.60-5.2); RDW 16.1 % (11.6-15.6); WHITE BLOOD COUNT 8.2 K/mm3 (4.0-10.0)
[2020-10-07 16:57] LABS: MCH 19.7 pg (25.7-33.7)
[2020-10-07 17:20] LABS: ALBUMIN 3.4 g/dl (3.4-5.0); CALCIUM 9.3 mg/dL (8.5-10.1)
[2020-10-07 17:21] LABS: BLOOD UREA NITROGEN 11.6 mg/dL (7-18)
[2020-10-07 17:24] LABS: CREATININE 0.7 mg/dL (0.55-1.3)
[2020-10-07 17:25] LABS: BILIRUBIN,TOTAL 0.4 mg/dL (0.2-1)
[2020-10-07 17:26] LABS: TOT PROT 7.3 g/dl (6.4-8.2)
[2020-10-07 18:01] LABS: POTASSIUM 4.4 mmol/L (3.5-5.1)
[2020-10-07 20:32] LABS: LDH 326 U/L (84-246)
[2020-10-07] MEDS ORDERED: ALBUTEROL SO4 HFA INHALER IH PRN (22:03)
[2020-10-07] MEDS ORDERED: guaiFENesin/D-M SUGAR-FREE/ACLHOL-FREE 118 ML BOTTLE PO PRN (22:37)
[2020-10-08 01:49] LABS: EPI CELLS 15 /uL (0-25.1); HYALINE CASTS 0 /uL (0-3.1); PH,URINE 6.5 (5.0-8.0); URINE APPEARANCE CLEAR; URINE BACTERIA 459 /uL (0-1359); URINE BILIRUBIN NEGATIVE (NEGATIVE); URINE COLOR YELLOW; URINE GLUCOSE (UA) NEGATIVE (NEGATIVE); URINE KETONE 1+ (NEGATIVE); URINE LEUK ESTERASE TRACE (NEGATIVE); URINE NITRITE NEGATIVE (NEGATIVE); URINE PROTEIN 1+ (NEGATIVE); URINE RBC 31 /uL (0-23.9); URINE UROBILINOGEN 0.2 mg/dL (0.2-1.0); URINE WBC 20 /uL (0-25.8)
[2020-10-08 08:19] LABS: BASO % 0.2 % (0-2.0); HEMATOCRIT 33.9 % (32.4-45.2); HEMOGLOBIN 10.8 GM/dL (10.7-15.3); LYMPH % 20.1 % (8-40); MCHC 31.9 g/dl (32.0-36.0); MEAN CELL VOLUME 61.8 fl (80-96); MEAN PLT VOLUME 7.9 fl (7.5-11.1); MONO % 3.8 % (3.8-10.2); NEUT % 75.9 % (42.8-82.8); PLATELET COUNT 285 K/MM3 (134-434); RBC 5.49 M/mm3 (3.60-5.2); RDW 16.4 % (11.6-15.6); WHITE BLOOD COUNT 4.4 K/mm3 (4.0-10.0)
[2020-10-08 08:26] LABS: MCH 19.7 pg (25.7-33.7)
[2020-10-08 08:47] LABS: TOTAL IRON BINDING CAPACITY 265 ug/dL (250-450)
[2020-10-08 08:54] LABS: IRON SERUM 38 ug/dL (50-175)
[2020-10-08 09:06] LABS: ALBUMIN 3.2 g/dl (3.4-5.0); BLOOD UREA NITROGEN 12.5 mg/dL (7-18); CALCIUM 9.1 mg/dL (8.5-10.1); MAGNESIUM 1.8 mg/dL (1.8-2.4)
[2020-10-08 09:09] LABS: CREATININE 0.7 mg/dL (0.55-1.3); PHOSPHOROUS 3.7 mg/dL (2.5-4.9)
[2020-10-08 09:10] LABS: BILIRUBIN,TOTAL 0.5 mg/dL (0.2-1); TOT PROT 7.3 g/dl (6.4-8.2)
[2020-10-08] MEDS ORDERED: DEXAMETHASONE SOD PHOSPHATE 4 MG/1 ML VIAL IVPUSH SCH (10:00)
[2020-10-08] MEDS: ASCORBIC ACID 500 MG TABLET (FP) PO SCH (12:32)
[2020-10-08] MEDS: FAMOTIDINE 20 MG TABLET PO SCH ×2 (12:32→21:09)
[2020-10-08] MEDS: CHOLECALCIFEROL (VIT D3) 1,000 UNIT (25 MCG) TABLET PO SCH (12:32)
[2020-10-08] MEDS: ENOXAPARIN NA (PORCINE) 40 MG/0.4 ML DISP.SYRIN SQ SCH (12:32)
[2020-10-08] MEDS: LISINOPRIL 20 MG TABLET PO SCH (12:32)
[2020-10-08] MEDS: ZINC SULFATE 220 MG CAPSULE (FP) PO SCH (12:32)
[2020-10-08] MEDS ORDERED: ASCORBIC ACID 500 MG TABLET (FP) ONE (12:36)
[2020-10-08] MEDS ORDERED: DEXAMETHASONE SOD PHOSPHATE 10 MG/1 ML VIAL ONE (12:36)
[2020-10-08] MEDS ORDERED: FAMOTIDINE 20 MG TABLET ONE (12:37)
[2020-10-08] MEDS ORDERED: LISINOPRIL 20 MG TABLET ONE (12:37)
[2020-10-08] MEDS ORDERED: ZINC SULFATE 220 MG CAPSULE (FP) ONE (12:37)
[2020-10-08] MEDS ORDERED: CHOLECALCIFEROL (VIT D3) 1,000 UNIT (25 MCG) TABLET ONE (12:38)
[2020-10-08] MEDS ORDERED: ENOXAPARIN NA (PORCINE) 40 MG/0.4 ML DISP.SYRIN SQ ONE (12:38)
[2020-10-08 15:06] LABS: N-TERMINAL BNP 395.1 pg/ml (5-450)
[2020-10-08] MEDS: ATORVASTATIN CA 20 MG TABLET (FP) PO SCH (21:09)
[2020-10-09] MEDS ORDERED: IRON SUCROSE INJECTION 200 MG in SODIUM CHLORIDE 90 ML IVPB ONE (08:10)
[2020-10-09 10:14] LABS: HEMATOCRIT 32.5 % (32.4-45.2); HEMOGLOBIN 10.5 GM/dL (10.7-15.3); LYMPH % 10.8 % (8-40); MCHC 32.4 g/dl (32.0-36.0); MEAN CELL VOLUME 61.6 fl (80-96); MEAN PLT VOLUME 7.8 fl (7.5-11.1); MONO % 5.1 % (3.8-10.2); NEUT % 84.1 % (42.8-82.8); PLATELET COUNT 363 K/MM3 (134-434); RBC 5.27 M/mm3 (3.60-5.2); RDW 16.3 % (11.6-15.6); WHITE BLOOD COUNT 9.6 K/mm3 (4.0-10.0)
[2020-10-09] MEDS: ENOXAPARIN NA (PORCINE) 40 MG/0.4 ML DISP.SYRIN SQ SCH (10:23)
[2020-10-09] MEDS: DEXAMETHASONE 4 MG TABLET (FP) PO SCH (10:23)
[2020-10-09] MEDS: FAMOTIDINE 20 MG TABLET PO SCH ×2 (10:23→22:43)
[2020-10-09] MEDS: ASPIRIN 81 MG CHEWABLE TABLETS PO SCH (10:23)
[2020-10-09] MEDS: CHOLECALCIFEROL (VIT D3) 1,000 UNIT (25 MCG) TABLET PO SCH (10:24)
[2020-10-09] MEDS: ASCORBIC ACID 500 MG TABLET (FP) PO SCH (10:24)
[2020-10-09] MEDS: LISINOPRIL 20 MG TABLET PO SCH (10:24)
[2020-10-09] MEDS: ZINC SULFATE 220 MG CAPSULE (FP) PO SCH (10:24)
[2020-10-09 10:29] LABS: POTASSIUM 4.3 mmol/L (3.5-5.1)
[2020-10-09 10:45] LABS: CALCIUM 9.4 mg/dL (8.5-10.1); TOT PROT 6.9 g/dl (6.4-8.2)
[2020-10-09 10:46] LABS: ALBUMIN 3.1 g/dl (3.4-5.0)
[2020-10-09 10:49] LABS: CREATININE 0.7 mg/dL (0.55-1.3)
[2020-10-09 10:50] LABS: BILIRUBIN,TOTAL 0.9 mg/dL (0.2-1)
[2020-10-09] MEDS: ATORVASTATIN CA 20 MG TABLET (FP) PO SCH (22:43)
[2020-10-10 09:32] LABS: BASO % 0.1 % (0-2.0); HEMATOCRIT 32.1 % (32.4-45.2); HEMOGLOBIN 10.4 GM/dL (10.7-15.3); LYMPH % 10.3 % (8-40); MCHC 32.5 g/dl (32.0-36.0); MEAN CELL VOLUME 61.6 fl (80-96); MEAN PLT VOLUME 7.2 fl (7.5-11.1); MONO % 7.1 % (3.8-10.2); NEUT % 82.5 % (42.8-82.8); PLATELET COUNT 360 K/MM3 (134-434); RBC 5.21 M/mm3 (3.60-5.2); RDW 16.2 % (11.6-15.6); WHITE BLOOD COUNT 11.3 K/mm3 (4.0-10.0)
[2020-10-10 09:53] LABS: POTASSIUM 4.5 mmol/L (3.5-5.1)
[2020-10-10] MEDS: ZINC SULFATE 220 MG CAPSULE (FP) PO SCH (10:27)
[2020-10-10] MEDS: LISINOPRIL 20 MG TABLET PO SCH (10:27)
[2020-10-10] MEDS: ASPIRIN 81 MG CHEWABLE TABLETS PO SCH (10:30)
[2020-10-10] MEDS: DEXAMETHASONE 4 MG TABLET (FP) PO SCH (10:30)
[2020-10-10] MEDS: CHOLECALCIFEROL (VIT D3) 1,000 UNIT (25 MCG) TABLET PO SCH (10:32)
[2020-10-10] MEDS: ASCORBIC ACID 500 MG TABLET (FP) PO SCH (10:33)
[2020-10-10] MEDS: FAMOTIDINE 20 MG TABLET PO SCH ×2 (10:34→21:36)
[2020-10-10] MEDS: ENOXAPARIN NA (PORCINE) 40 MG/0.4 ML DISP.SYRIN SQ SCH (10:39)
[2020-10-10] MEDS: guaiFENesin/D-METHORPHAN HB 10 ML UNIT-DOSE CUPS PO PRN (10:39)
[2020-10-10 10:51] LABS: ALBUMIN 3.1 g/dl (3.4-5.0); BLOOD UREA NITROGEN 21.7 mg/dL (7-18); CALCIUM 9.4 mg/dL (8.5-10.1)
[2020-10-10 10:52] LABS: MAGNESIUM 2.1 mg/dL (1.8-2.4)
[2020-10-10 10:55] LABS: PHOSPHOROUS 2.6 mg/dL (2.5-4.9)
[2020-10-10 10:56] LABS: BILIRUBIN,TOTAL 0.6 mg/dL (0.2-1); CREATININE 0.7 mg/dL (0.55-1.3); TOT PROT 6.8 g/dl (6.4-8.2)
[2020-10-10 15:03] VITALS: BMI 35.9
[2020-10-10] MEDS: ATORVASTATIN CA 20 MG TABLET (FP) PO SCH (21:35)
[2020-10-11 08:49] LABS: BASO % 0.2 % (0-2.0); HEMATOCRIT 31.3 % (32.4-45.2); HEMOGLOBIN 10.3 GM/dL (10.7-15.3); LYMPH % 12.4 % (8-40); MCHC 32.8 g/dl (32.0-36.0); MEAN CELL VOLUME 60.8 fl (80-96); MEAN PLT VOLUME 7.8 fl (7.5-11.1); MONO % 9.5 % (3.8-10.2); NEUT % 77.9 % (42.8-82.8); PLATELET COUNT 341 K/MM3 (134-434); RBC 5.15 M/mm3 (3.60-5.2); WHITE BLOOD COUNT 10.5 K/mm3 (4.0-10.0)
[2020-10-11 08:57] LABS: MCH 19.9 pg (25.7-33.7)
[2020-10-11 10:50] LABS: POTASSIUM 4.6 mmol/L (3.5-5.1)
[2020-10-11 11:01] LABS: CALCIUM 9.1 mg/dL (8.5-10.1)
[2020-10-11 11:02] LABS: ALBUMIN 2.8 g/dl (3.4-5.0); BLOOD UREA NITROGEN 21.3 mg/dL (7-18)
[2020-10-11 11:03] LABS: MAGNESIUM 2.1 mg/dL (1.8-2.4)
[2020-10-11 11:05] LABS: CREATININE 0.6 mg/dL (0.55-1.3); PHOSPHOROUS 2.6 mg/dL (2.5-4.9)
[2020-10-11 11:10] LABS: BILIRUBIN,TOTAL 1.2 mg/dL (0.2-1)
[2020-10-11] MEDS: ENOXAPARIN NA (PORCINE) 40 MG/0.4 ML DISP.SYRIN SQ SCH (11:17)
[2020-10-11] MEDS: LISINOPRIL 20 MG TABLET PO SCH (11:17)
[2020-10-11] MEDS: ZINC SULFATE 220 MG CAPSULE (FP) PO SCH (11:17)
[2020-10-11] MEDS: ASPIRIN 81 MG CHEWABLE TABLETS PO SCH (11:18)
[2020-10-11] MEDS: ASCORBIC ACID 500 MG TABLET (FP) PO SCH (11:18)
[2020-10-11] MEDS: DEXAMETHASONE 4 MG TABLET (FP) PO SCH (11:18)
[2020-10-11] MEDS: FAMOTIDINE 20 MG TABLET PO SCH ×2 (11:18→22:29)
[2020-10-11] MEDS: CHOLECALCIFEROL (VIT D3) 1,000 UNIT (25 MCG) TABLET PO SCH (11:19)
[2020-10-11 12:04] LABS: ANISOCYTOSIS 1+; MACROCYTOSIS 0; PLATELET ESTIMATE NORMAL
[2020-10-11] MEDS: ATORVASTATIN CA 20 MG TABLET (FP) PO SCH (22:29)
[2020-10-11] MEDS: guaiFENesin/D-METHORPHAN HB 10 ML UNIT-DOSE CUPS PO PRN (22:29)
[2020-10-12 09:09] LABS: HEMATOCRIT 32.8 % (32.4-45.2); HEMOGLOBIN 10.6 GM/dL (10.7-15.3); MCHC 32.3 g/dl (32.0-36.0); MEAN CELL VOLUME 61.6 fl (80-96); MEAN PLT VOLUME 7.3 fl (7.5-11.1); PLATELET COUNT 370 K/MM3 (134-434); RBC 5.33 M/mm3 (3.60-5.2); RDW 16.2 % (11.6-15.6); WHITE BLOOD COUNT 10.8 K/mm3 (4.0-10.0)
[2020-10-12 09:15] LABS: MCH 19.9 pg (25.7-33.7)
[2020-10-12 09:34] LABS: POTASSIUM 4.7 mmol/L (3.5-5.1)
[2020-10-12 10:22] LABS: CALCIUM 9.2 mg/dL (8.5-10.1)
[2020-10-12 10:24] LABS: ALBUMIN 2.8 g/dl (3.4-5.0); BLOOD UREA NITROGEN 20.3 mg/dL (7-18)
[2020-10-12 10:27] LABS: BILIRUBIN,TOTAL 1.1 mg/dL (0.2-1); CREATININE 0.6 mg/dL (0.55-1.3); TOT PROT 6.2 g/dl (6.4-8.2)
[2020-10-12] MEDS: ENOXAPARIN NA (PORCINE) 40 MG/0.4 ML DISP.SYRIN SQ SCH (12:02)
[2020-10-12] MEDS: ASCORBIC ACID 500 MG TABLET (FP) PO SCH (12:03)
[2020-10-12] MEDS: DEXAMETHASONE 4 MG TABLET (FP) PO SCH (12:03)
[2020-10-12] MEDS: ASPIRIN 81 MG CHEWABLE TABLETS PO SCH (12:03)
[2020-10-12] MEDS: ZINC SULFATE 220 MG CAPSULE (FP) PO SCH (12:03)
[2020-10-12] MEDS: FAMOTIDINE 20 MG TABLET PO SCH ×2 (12:03→21:47)
[2020-10-12] MEDS: LISINOPRIL 20 MG TABLET PO SCH (12:04)
[2020-10-12] MEDS: CHOLECALCIFEROL (VIT D3) 1,000 UNIT (25 MCG) TABLET PO SCH (12:04)
[2020-10-12] MEDS: ATORVASTATIN CA 20 MG TABLET (FP) PO SCH (21:47)
[2020-10-13] MEDS: ASPIRIN 81 MG CHEWABLE TABLETS PO SCH (09:45)
[2020-10-13] MEDS: FAMOTIDINE 20 MG TABLET PO SCH (09:45)
[2020-10-13] MEDS: ZINC SULFATE 220 MG CAPSULE (FP) PO SCH (09:45)
[2020-10-13] MEDS: DEXAMETHASONE 4 MG TABLET (FP) PO SCH (09:45)
[2020-10-13] MEDS: CHOLECALCIFEROL (VIT D3) 1,000 UNIT (25 MCG) TABLET PO SCH (09:45)
[2020-10-13] MEDS: ENOXAPARIN NA (PORCINE) 40 MG/0.4 ML DISP.SYRIN SQ SCH (09:45)
[2020-10-13] MEDS: ASCORBIC ACID 500 MG TABLET (FP) PO SCH (09:46)
[2020-10-13] MEDS: LISINOPRIL 20 MG TABLET PO SCH (09:46)
[2020-10-13 11:09] VITALS: BP 110/59; PULSE 68; TEMP 97.8
== END 2020-10-13 13:18 | disposition home or self-care (01) | DRG 177 ==
LOC: JER 14:25 → JERBED 21:02 → J5S 10-08 14:02
PROVIDERS: ADMIT Internal Medicine; ATTEND Internal Medicine
DX: U07.1 COVID-19 (principal); J96.01 Acute respiratory failure with hypoxia; J12.82 Pneumonia due to coronavirus disease 2019; I10 Essential (primary) hypertension; K21.9 Gastro-esophageal reflux disease without esophagitis; E66.9 Obesity, unspecified; E78.5 Hyperlipidemia, unspecified; Z68.36 Body mass index [BMI] 36.0-36.9, adult; R74.01 Elevation of levels of liver transaminase levels; I25.10 Atherosclerotic heart disease of native coronary artery without angina pectoris; G47.30 Sleep apnea, unspecified; M54.5 Low back pain; F41.9 Anxiety disorder, unspecified; D50.9 Iron deficiency anemia, unspecified
CPT/HCPCS: 36415; 71046-TC-FY; 80053; 80061; 81003; 82272; 82550; 82728; 83036; 83540; 83550; 83615; 83721; 83735; 83880; 84100; 84443; 84484; 85025; 85027; 85045; 85379; 85384; 86140; 86769; 87804; 93005; 93010; 94761; 97116-GP; 97161-GP; 99285-25; C9803; J1756; U0003